=== PATIENT | male | born 1940 | race Caucasian/White ===

== ENCOUNTER 2018-02-13 13:23 | Emergency (ER) | payer OTHER ==
--- NOTE | 2018-02-13 15:01 | ED ---
General Adult HPI - General Stated complaint: Foot swelling/pain Time Seen by Provider: 02/13/18 13:25 Source: RN notes reviewed - History of Present Illness Initial comments: This is a 77-year-old male who presents emergency Department complaining of pain and redness to the right posterior heel patient states there was no injury there's been no trauma others. No open wound is been no drainage of any fluid. Patient states about 3-4 days ago the area became tender red and that redness is increased and now is spreading to the medial aspect of the foot. Patient denies any fever chills patient denies any injury patient denies any possibility of a foreign body patient denies walking around his bare feet patient denies any new shoes. Review of Systems ROS Statement: Those systems with pertinent positive or pertinent negative responses have been documented in the HPI. ROS Other: All systems not noted in ROS Statement are negative. General Exam - General Exam Comments Initial Comments: GENERAL Patient is well-developed and well-nourished. Patient is in mild distress. EYES Patient's pupils are equal and round. Extraocular motion is intact SKIN Unremarkable NEURO The patient is alert and oriented 3 PYSCH Patient has normal interpersonal interactions. MUSCULOSKELETAL Right heel posteriorly is red and extremely tender to palpation there does not appear to be any open wound or cut. Medical Decision Making - Medical Decision Making X-ray of the foot shows no foreign body no subcutaneous air Disposition Clinical Impression: Abrasion of heel, infected Disposition: HOME SELF-CARE Condition: Good Instructions: Cellulitis (ED) Referrals: [facility],Clinic [Primary Care Provider] - 1-2 days Time of Disposition: 15:38
--- NOTE | 2018-02-13 15:36 | XR ---
Right foot HISTORY: Heel pain 3 views of the right foot There is marked degenerative change at the first metatarsophalangeal joint. Alignment and bone minera lization are maintained. There is a plantar calcaneal spur. Vascular calcifications may be indicative of diabetes, peripheral vascular occlusive disease. IMPRESSION: Plantar calcaneal spur. Osteoarthritis.
== END 2018-02-13 16:00 | disposition home or self-care (01) ==
LOC: EC 13:23
DX: S90.811A Abrasion, right foot, initial encounter (principal); L08.9 Local infection of the skin and subcutaneous tissue, unspecified
CPT/HCPCS: 99283

== ENCOUNTER → 2020-01-08 | Outpatient (CLI) | payer OTHER | END | disposition home or self-care (01) | LOC: LABWHC1 08:50 | PROVIDERS: ATTEND Internal Medicine Gastroenterology | DX: Z11.59 Encounter for screening for other viral diseases (principal) ==

== ENCOUNTER 2020-01-10 07:18 | Day surgery (SDC) | payer OTHER ==
[2020-01-08 15:15] VITALS: BMI 27.9
[~2020-01-10 07:18] MED LIST: LACTATED RINGERS 1,000 ML IV SCH
[2020-01-10 08:13] VITALS: RESP 16; TEMP 97
[2020-01-10] MEDS ORDERED: LIDOCAINE 1% (10MG/ML) FOR IV START INTRADERMA ONE (08:19)
[2020-01-10] MEDS ORDERED: LIDOCAINE 1% INJ 10MG/ML (20 ML MDV) ONE (08:50)
[2020-01-10] MEDS ORDERED: PROPOFOL 10 MG/ML 20 ML VIAL IV ONE (08:50)
--- NOTE | 2020-01-10 09:02 | P.PCN ---
Date of Procedure: 01/10/20 Procedure(s) Performed: BRIEF HISTORY: Patient is a 79-year-old, pleasant, white male scheduled for an upper endoscopy as a part of evaluation of intermittent dysphagia to solids for the last 6 years duration. Symptoms happen once or twice a month. He scheduled for an upper endoscopy with possible dilation today. PROCEDURE PERFORMED: Esophagogastroduodenoscopy with biopsy and dilation. PREOPERATIVE DIAGNOSIS: Intermittent dysphagia to solids for the last 6 years duration. IV sedation per anesthesia. PROCEDURE: After informed consent was obtained, the patient was brought into the endoscopy unit. IV sedation was administered by Anesthesia under continuous monitoring. Initially the Olympus GIF-140 video endoscope was inserted into the mouth. Esophagus intubated without any difficulty. It was gradually advanced into the stomach and duodenum and carefully examined. The bulb and the second pa rt of the duodenum appeared normal. The scope at this time was withdrawn to the stomach, adequately insufflated with air, and upon careful examination, mucosa of the antrum, body, cardia and the fundus appeared normal. The scope was then withdrawn into the esophagus. The GE junction was located at 340 cm from the incisors. There was a distal esophageal stricture identified which was dilated using 12-13.5 mm TTS balloon in a sequential fashion following which there was mucosal there was oozing identified and hence further dilation was performed. There was a small hiatal hernia noted. The mucosa in the mid and distal esophagus and mildly thickened esophageal folds and hence biopsies were done from this area to rule out eosinophilic esophagitis. The rest of the esophagus appeared normal. There were no erosions or ulcerations seen and the patient tolerated the procedure well. IMPRESSION: 1. Distal esophageal stricture status post balloon dilation using 12 and 13.5 mm TTS balloon as described above. 2. Small hiatal hernia. 3. Thickened folds in the distal esophagus suspicious for eosinophilic esophagitis, status post multiple biopsies RECOMMENDATIONS: The findings of this examination were discussed with the patient as well as a family. He was advised to remain on a clear liquid diet today. In the meantime he'll be started on Prilosec 20 mg daily. He was advised to follow with the biopsy results. He'll be seen in office in 6 weeks.
[2020-01-10 09:09] VITALS: BP 135/75; PULSE 62
== END 2020-01-10 09:32 | disposition home or self-care (01) ==
LOC: ORWHC2ENDO 07:18
PROVIDERS: ATTEND Internal Medicine Gastroenterology
DX: K22.2 Esophageal obstruction (principal); K20.0 Eosinophilic esophagitis; K44.9 Diaphragmatic hernia without obstruction or gangrene; Z98.890 Other specified postprocedural states; E78.5 Hyperlipidemia, unspecified; M19.90 Unspecified osteoarthritis, unspecified site; Z85.46 Personal history of malignant neoplasm of prostate; Z79.82 Long term (current) use of aspirin; Z79.899 Other long term (current) drug therapy
CPT/HCPCS: 43249; 43239; 88305; J2001; J2704; C1726